=== PATIENT | female | born 1945 | race Caucasian/White ===

== ENCOUNTER 2022-04-28 20:25 | Emergency (ER) | payer MEDICARE, BC ==
[2022-04-28 21:11] VITALS: BP 148/66; PULSE 55
== END 2022-04-28 23:32 | disposition home or self-care (01) ==
LOC: JD.ED 20:25
DX: J02.9 Acute pharyngitis, unspecified (principal); E78.00 Pure hypercholesterolemia, unspecified; I10 Essential (primary) hypertension; Z88.8 Allergy status to other drugs, medicaments and biological substances; Z79.899 Other long term (current) drug therapy; Z20.822 Contact with and (suspected) exposure to COVID-19
CPT/HCPCS: 87651; 99283; U0002

== ENCOUNTER 2024-03-08 08:25 | Day surgery (SDC) | payer MEDICARE, BC ==
[~2024-03-08 08:25] MED LIST: Sodium Chloride 0.9% 10 ML Syringe FLUSH PRN; Sodium Chloride 0.9% 10 ML Syringe FLUSH SCH
[2024-03-08] MEDS: Lactated Ringers 1,000 ML IV SCH (09:00)
[2024-03-08] MEDS ORDERED: HYDROmorphone 0.5 MG/0.5 ML Syringe IVPUSH PRN (09:15)
[2024-03-08] MEDS ORDERED: Ondansetron 4 MG/2 ML SDV IVPUSH PRN (09:15)
[2024-03-08] MEDS ORDERED: fentaNYL 100 MCG/2 ML SDV IVPUSH PRN (09:15)
[2024-03-08] MEDS ORDERED: Midazolam 1 MG/ML 2 ML SDV ONE (09:18)
[2024-03-08] MEDS ORDERED: ceFAZolin 2 GM Vial ONE (09:18)
[2024-03-08] MEDS ORDERED: Propofol 200 MG/20 ML SDV ONE (09:18)
[2024-03-08] MEDS ORDERED: ePHEDrine 50 MG/ML SDV ONE (10:00)
[2024-03-08] MEDS ORDERED: Lactated Ringers 1,000 ML ONE (10:10)
[2024-03-08] MEDS ORDERED: Ondansetron 4 MG/2 ML SDV ONE (10:39)
[2024-03-08] MEDS ORDERED: Ketorolac 15 MG/ML SDV ONE (10:39)
[2024-03-08] MEDS: Morphine 8 MG, EPINEPHrine 0.3 MG, Cefuroxime 750 MG, Ketorolac 30 MG, Sodium Chloride ... PRN (11:04)
[2024-03-08] MEDS: Vancomycin 1 GM SDV ONE (11:04)
[2024-03-08] MEDS: Tranexamic Acid 1,000 MG/10 ML Vial ONE (11:04)
[2024-03-08] MEDS: Acetaminophen/HYDROcodone 325-5 MG Tab PO PRN (12:45)
[2024-03-08 14:38] VITALS: BP 106/53; PULSE 57
== END 2024-03-08 15:00 | disposition home or self-care (01) ==
LOC: JD.SDS 08:25
PROVIDERS: ATTEND Orthopaedic Surgery
DX: M16.12 Unilateral primary osteoarthritis, left hip (principal); I10 Essential (primary) hypertension; E78.00 Pure hypercholesterolemia, unspecified; Z79.899 Other long term (current) drug therapy; Z88.8 Allergy status to other drugs, medicaments and biological substances
CPT/HCPCS: 0055T; 27130; 36415; 73501; 86850; 86900; 86901; 97110; 97161; 99283; A9270; C1713; C1776; J0171; J0690; J0697; J1885; J2250; J2270; J2405; J2704; J3370; J7120; 01214; 99100; J3490

== ENCOUNTER 2024-03-08 17:26 | Emergency (ER) | payer MEDICARE, BC ==
[2024-03-08] MEDS: Acetaminophen/HYDROcodone 325-5 MG Tab PO ONE (18:37)
[2024-03-08 22:49] VITALS: BP 109/55; PULSE 71
== END 2024-03-08 22:40 | disposition home or self-care (01) ==
LOC: JD.ED 17:26
DX: M96.830 Postprocedural hemorrhage of a musculoskeletal structure following a musculoskeletal system procedure (principal); I10 Essential (primary) hypertension; E78.00 Pure hypercholesterolemia, unspecified; Z79.82 Long term (current) use of aspirin; Z96.642 Presence of left artificial hip joint; Z79.899 Other long term (current) drug therapy; Z88.8 Allergy status to other drugs, medicaments and biological substances
CPT/HCPCS: 99283; A9270-GY